=== PATIENT | male | born 1995 | race African-American/Black ===

== ENCOUNTER 2017-12-27 10:48 | Emergency (ER) | payer SELFPAY ==
[~2017-12-27] VITALS: Ht 200.7 cm; Wt 77.3 kg
[2017-12-27] MEDS ORDERED: IBUPROFEN 600 MG TABLET PO ONE (14:30)
[2017-12-27 14:59] VITALS: BP 132/94
== END 2017-12-27 15:22 | disposition home or self-care (01) ==
LOC: EMS 10:51
DX: M54.6 Pain in thoracic spine (principal); J45.909 Unspecified asthma, uncomplicated; Z71.6 Tobacco abuse counseling
CPT/HCPCS: 71046; 72040; 99284; 99406